=== PATIENT | female | born 1970 | race Caucasian/White ===

== ENCOUNTER 2019-07-21 08:36 | Outpatient (CLI) | payer OTHER ==
[2019-07-21] MEDS ORDERED: ISOVUE-370 76%-LOCM 1 ML ONE (10:25)
--- NOTE | 2019-07-21 11:27 | CT ---
CT OF THE THORAX WITH IV CONTRAST: INDICATION: History of wheezing, elevated white count, and mid aspect chest pain. COMPARISON: Chest radiograph from [facility] dated 06/22/2019. FINDINGS: There is subsegmental volume loss within the lingula and right middle lobe. No confluent airspace op acity or pleural effusion is evident. There are nonspecific shotty-appearing lymph nodes within the mediastinum. The largest is seen within the prevascular window measuring 8.7 mm. There is a 1.1 cm subcarinal lymph node. Visualized upper abdomen demonstrates cholecystectomy change. Normal adrenal glands. Small splenules within the left upper quadrant. There is scattered degenerative and osteoa rthritic change. IMPRESSION: 1. No definite acute cardiopulmonary abnormality. 2. Mildly prominent lymph nodes within the mediastinum, none of which are pathologically enlarged ba sed on size criteria. 3. Subsegmental volume loss within the right middle lobe and lingula are nonspecific. POS: OFF
== END 2019-07-21 08:37 | disposition home or self-care (01) ==
LOC: BICCT 08:36
PROVIDERS: ATTEND Nurse Practitioner Family
DX: D72.828 Other elevated white blood cell count (principal); R06.2 Wheezing; F17.200 Nicotine dependence, unspecified, uncomplicated
CPT/HCPCS: 71260

== ENCOUNTER 2019-10-10 09:49 | Emergency (ER) | payer OTHER ==
[2019-10-10 10:19] LABS: Bilirubin Negative (Negative); Blood, Urine Negative (Negative); Clarity Clear (Clear); Glucose, Urine (Dipstick) Normal (Negative); Leukocyte Negative Leu/uL (Negative); Nitrite Negative (Negative); Protein, Urine (Dipstick) Negative (Neg-Trace); Urobilinogen Normal mg/dL (Less than 2)
[2019-10-10 10:48] LABS: #Basophils 0.1 thou/uL (0.0-0.2); #Eosinphils 0.2 thou/uL (0.0-0.7); #Monocytes 0.4 thou/uL (0.11-0.59); #Neutrophils 3.8 thou/uL (1.40-6.50); %Basophils 0.9 % (0.0-1.0); %Eosinophils 2.4 % (0.0-10.0); %Lymphocytes 40.3 % (21.0-51.0); %Monocytes 5.8 % (0.0-10.0); %Neutrophils 50.6 % (42.0-75.0); Hemoglobin 14.4 g/dL (12.0-16.0); Mean Corpuscular HGB CONC 33.4 g/dL (32.0-36.0); Mean Corpuscular Hemoglobin 28.9 pg (27.0-31.0); Mean Corpuscular Volume 86.5 fL (78.0-98.0); Mean Platelet Volume 7.5 fL (7.4-10.4); Platelet Count 354 thou/uL (130-400); RBC Distribution Width 11.6 % (11.5-14.5); Red Blood Cell (RBC) Count 4.99 mill/uL (4.20-5.40); White Blood Cell (WBC) Count 7.5 thou/uL (4.8-10.8)
[2019-10-10 11:07] LABS: ALT (SGPT) 27 U/L (8-55); AST (SGOT) 25 U/L (5-34); Albumin 3.9 g/dL (3.5-5.0); Alkaline Phosphatase 69 U/L (40-110); Anion Gap 10 mmol/L (10-20); BUN (Urea Nitrogen) 10 mg/dL (7.0-18.7); Bilirubin, Total 0.3 mg/dL (0.2-1.2); Calc. Creatinine Clearance 0 mL/min (70-130); Calcium 9.3 mg/dL (7.8-10.44); Carbon Dioxide 24 mmol/L (22-29); Chloride 106 mmol/L (98-107); Estimated GFR-MDRD 78; Globulin 3.2 g/dL (2.4-3.5); Glucose 94 mg/dL (70-105); Lipase 29 U/L (8-78); Protein, Total 7.1 g/dL (6.0-8.3); Sodium 136 mmol/L (136-145)
[2019-10-10 11:15] LABS: BHCG - Serum Negative (NEGATIVE); Pregs Control Background? CLEAR/WHITE (CLR/WHITE); Pregs Control Bar Appear? YES (CONTROL BAR)
[2019-10-10] MEDS ORDERED: Ondansetron PF 4 MG/2 ML Vial ONE (11:16)
[2019-10-10] MEDS ORDERED: Morphine 4 MG/ML VIAL ONE ×2 (11:16→11:46)
[2019-10-10] MEDS ORDERED: Meropenem 2 GM in Admixture Fee 1 EACH IVPB SCH (11:30)
[2019-10-10] MEDS ORDERED: Meropenem 2 GM in Sodium Chloride 0.9% 100 ML IVPB SCH (11:45)
--- NOTE | 2019-10-10 12:39 | CT ---
ABDOMEN AND PELVIC CT SCAN WITH CONTRAST: HISTORY: Pain. COMPARISON: 04/16/2010. FINDINGS: Scattered atelectasis and/or scar is seen at the lung bases. Liver: Mixed attenuation, with subtle regions of decreased density is suggestive of hepatic steatosis . Gallbladder: Surgically absent. Pancreas: Unremarkable. Spleen: Unremarkable. Adrenal glands: No mass evident. Kidneys: No renal calculus or acute obstruction. Small hypodensity, lower pole right kidney, too s mall to definitively characterize. Bowel: Colonic diverticulosis. No evidence of bowel obstruction. No evidence of acute appendicitis wi thin limitations of technique. Urinary Bladder: The urinary bladder is unremarkable. Adenopathy: No adenopathy within the abdomen or pelvis. Free Air: No free air. Ascites: No ascites. Osseous structures: No acute osseous abnormalities. IMPRESSION: 1. Colonic diverticulosis. 2. Hepatic steatosis. 3. Small hypodensity right kidney, too small to further characterize. Transcribed Date/Time: 10/10/2019 12:49 PM
[2019-10-10] MEDS ORDERED: Pantoprazole 40 MG VIAL ONE (12:48)
[2019-10-10] MEDS ORDERED: Iopamidol 370 76% 100 ML VIAL ONE (12:54)
--- NOTE | 2019-10-10 14:06 | ULT ---
TRANSABDOMINAL TRANSVAGINAL PELVIC ULTRASOUND DATE:: 10/10/2019 1:01 PM CLINICAL HISTORY: History of hysterectomy and right lower quadrant pain. COMPARISON: CT the abdomen and pelvis dated October 10, 2019 TECHNIQUE: Grayscale and color Doppler images were obtained of the pelvis see a transabdominal transv aginal approach Uterus: Surgically absent Ovaries: Not visualized Cul-de-sac: No free fluid IMPRESSION: No acute sonographic abnormality demonstrated.
== END 2019-10-10 14:40 | disposition home or self-care (01) ==
LOC: ERS 09:49
DX: K57.30 Diverticulosis of large intestine without perforation or abscess without bleeding (principal); E78.5 Hyperlipidemia, unspecified; F17.210 Nicotine dependence, cigarettes, uncomplicated; Z79.899 Other long term (current) drug therapy
CPT/HCPCS: 36415; 74177; 76856; 80053; 81003; 83690; 84703; 85025; 96361; 96365; 96375; C9113; J2185; J2270; J2405; J3490; Q9967

== ENCOUNTER 2019-10-11 10:58 | Emergency (ER) | payer OTHER ==
[2019-10-11 11:42] LABS: #Basophils 0.1 thou/uL (0.0-0.2); #Eosinphils 0.1 thou/uL (0.0-0.7); #Monocytes 0.6 thou/uL (0.11-0.59); #Neutrophils 5.1 thou/uL (1.40-6.50); %Basophils 1.2 % (0.0-1.0); %Eosinophils 1.6 % (0.0-10.0); %Lymphocytes 25.7 % (21.0-51.0); %Monocytes 7.1 % (0.0-10.0); %Neutrophils 64.5 % (42.0-75.0); Hemoglobin 13.2 g/dL (12.0-16.0); Mean Corpuscular HGB CONC 33.3 g/dL (32.0-36.0); Mean Corpuscular Hemoglobin 29.2 pg (27.0-31.0); Mean Corpuscular Volume 87.8 fL (78.0-98.0); Mean Platelet Volume 7.5 fL (7.4-10.4); Platelet Count 323 thou/uL (130-400); RBC Distribution Width 11.6 % (11.5-14.5); Red Blood Cell (RBC) Count 4.53 mill/uL (4.20-5.40); White Blood Cell (WBC) Count 7.9 thou/uL (4.8-10.8)
[2019-10-11 11:58] LABS: Anion Gap 9 mmol/L (10-20); BUN (Urea Nitrogen) 13 mg/dL (7.0-18.7); Calc. Creatinine Clearance 0 mL/min (70-130); Calcium 8.6 mg/dL (7.8-10.44); Carbon Dioxide 26 mmol/L (22-29); Chloride 108 mmol/L (98-107); Estimated GFR-MDRD 75; Glucose 107 mg/dL (70-105); Potassium 3.6 mmol/L (3.5-5.1); Sodium 139 mmol/L (136-145)
== END 2019-10-11 11:50 | disposition home or self-care (01) ==
LOC: ERS 10:58
DX: R10.31 Right lower quadrant pain (principal); E78.5 Hyperlipidemia, unspecified; Z79.899 Other long term (current) drug therapy
CPT/HCPCS: 36415; 80048; 85025; 99283

== ENCOUNTER 2020-01-02 14:34 | Outpatient (CLI) | payer OTHER ==
--- NOTE | 2020-01-02 15:30 | RAD ---
LEFT HIP 2 VIEWS: HISTORY: Patient fell and has persistent hip pain. Fall was a few weeks ago. FINDINGS: Joint space is fairly well preserved. I do not see any signs of any fracture. IMPRESSION: No evidence of fracture. No evidence of any arthritic change. POS: [facility]
--- NOTE | 2020-01-02 15:47 | RAD ---
LEFT FEMUR 2 VIEWS: HISTORY: Injury from a fall several weeks ago, then re-fell several days ago with left hip pain. FINDINGS: Mild osteoarthrosis changes of the left SI joint and left hip joint. No acute fracture or dislocatio n. IMPRESSION: Unremarkable left femur. No fracture or dislocation. POS: [facility]
== END 2020-01-02 14:35 | disposition home or self-care (01) ==
LOC: SCSRAD 14:34
PROVIDERS: ATTEND Nurse Practitioner Family
DX: M25.552 Pain in left hip (principal); M25.562 Pain in left knee; G90.522 Complex regional pain syndrome I of left lower limb

== ENCOUNTER 2020-04-19 14:18 | Emergency (ER) | payer OTHER ==
[2020-04-19 14:47] LABS: #Basophils 0.2 thou/uL (0.0-0.2); #Eosinphils 0.2 thou/uL (0.0-0.7); #Lymphocytes 3.8 thou/uL (1.20-3.40); #Monocytes 0.8 thou/uL (0.11-0.59); #Neutrophils 8.7 thou/uL (1.40-6.50); %Basophils 1.4 % (0.0-1.0); %Eosinophils 1.2 % (0.0-10.0); %Lymphocytes 28.1 % (21.0-51.0); %Monocytes 5.9 % (0.0-10.0); %Neutrophils 63.4 % (42.0-75.0); Hemoglobin 14.8 g/dL (12.0-16.0); Mean Corpuscular HGB CONC 32.9 g/dL (32.0-36.0); Mean Corpuscular Hemoglobin 29.2 pg (27.0-31.0); Mean Corpuscular Volume 88.8 fL (78.0-98.0); Mean Platelet Volume 7.5 fL (7.4-10.4); Platelet Count 383 thou/uL (130-400); Red Blood Cell (RBC) Count 5.08 mill/uL (4.20-5.40); White Blood Cell (WBC) Count 13.7 thou/uL (4.8-10.8)
[2020-04-19 14:58] LABS: Bilirubin Small (Negative); Blood, Urine Negative (Negative); Glucose, Urine (Dipstick) Negative (Negative); Leukocyte Negative (Negative); Nitrite Negative (Negative); Protein, Urine (Dipstick) Negative (Neg-Trace); Urobilinogen 0.2 mg/dL (Less than 2)
[2020-04-19 15:00] LABS: Clarity Clear (Clear)
[2020-04-19 15:32] LABS: ALT (SGPT) 20 U/L (8-55); AST (SGOT) 28 U/L (5-34); Alkaline Phosphatase 69 U/L (40-110); Anion Gap 13 mmol/L (10-20); BUN (Urea Nitrogen) 10 mg/dL (7.0-18.7); Bilirubin, Total 0.5 mg/dL (0.2-1.2); Calc. Creatinine Clearance 0 mL/min (70-130); Calcium 8.8 mg/dL (7.8-10.44); Carbon Dioxide 21 mmol/L (22-29); Chloride 104 mmol/L (98-107); Estimated GFR-MDRD 72; Globulin 3.8 g/dL (2.4-3.5); Glucose 123 mg/dL (70-105); Lipase 26 U/L (8-78); Potassium 4.1 mmol/L (3.5-5.1); Protein, Total 7.8 g/dL (6.0-8.3); Sodium 134 mmol/L (136-145)
[2020-04-19 15:38] LABS: BHCG - Serum Negative (NEGATIVE); Pregs Control Background? CLEAR/WHITE (CLR/WHITE); Pregs Control Bar Appear? YES (CONTROL BAR)
[2020-04-19] MEDS ORDERED: Ondansetron PF 4 MG/2 ML Vial ONE (15:44)
--- NOTE | 2020-04-19 16:31 | CT ---
CT abdomen and pelvis with IV contrast HISTORY: Right lower quadrant pain. COMPARISON: 10/10/2019. The lung bases are clear. Gallbladder is surgically absent. Circumaortic left renal vein noted. Tiny cortical calcification at the superior pole left kidney now better visualized. Tiny right renal cyst is stable. No urinary tract calcification or obstruction apparent. A 1.4 cm rounded right retroperitoneal cyst immediately anterior to the right external iliac artery a t the level of the mid sacrum may represent a congenital lymphatic process. No solid masses. Diverticula arise from the colon without adjacent inflammation. Fatty wall prominence of the right co ángel is more conspicuous on the current exam. Appendix is not inflamed. No evidence of bowel obstruction. IMPRESSION : No acute abnormalities are demonstrated to explain right lower quadrant pain. Fatty infiltration of t he right colon is nonspecific and sometimes seen with inflammatory bowel disease. Diverticulosis. No evidence of diverticulitis.
[2020-04-19] MEDS ORDERED: Ciprofloxacin 500 MG TAB ONE (17:41)
[2020-04-19] MEDS ORDERED: Ketorolac Tromethamine 30 MG/ML VIAL ONE (17:43)
== END 2020-04-19 17:55 | disposition home or self-care (01) ==
LOC: ERS 14:18
DX: K57.32 Diverticulitis of large intestine without perforation or abscess without bleeding (principal); E78.5 Hyperlipidemia, unspecified; E78.00 Pure hypercholesterolemia, unspecified; F41.9 Anxiety disorder, unspecified; F17.210 Nicotine dependence, cigarettes, uncomplicated; Z79.899 Other long term (current) drug therapy
CPT/HCPCS: 36415; 74177; 80053; 81003; 83690; 84703; 85025; 96361; 96374; 96375; J1885; J2405

== ENCOUNTER 2020-07-17 13:05 | Outpatient (CLI) | payer OTHER ==
[2020-07-17] MEDS ORDERED: Iopamidol 370 76% 100 ML VIAL ONE (13:35)
--- NOTE | 2020-07-17 14:17 | CT ---
EXAM: CT of the chest with contrast HISTORY: Mediastinal adenopathy COMPARISON: 07/21/2019 TECHNIQUE: Multiple contiguous axial images were obtained in a CT the chest with contrast. Coronal an d sagittal reformats were performed. FINDINGS: HEART: Normal in size without focal cardiac abnormality MEDIASTINUM: No hilar or mediastinal lymphadenopathy. The lymph nodes have decreased in size with the largest lymph node measuring 7 mm in short axis. LUNGS: No focal infiltrates, nodules, or masses. PLEURAL SPACE: No pneumothorax or pleural effusion. CHEST WALL SOFT TISSUES: Unremarkable OSSEOUS STRUCTURES: Degenerative changes in the spine. VISUALIZED SUBDIAPHRAGMATIC STRUCTURES: Status post cholecystectomy. Diffuse fatty infiltration of th e liver. IMPRESSION: 1. No evidence of acute intrathoracic abnormality. 2. Fatty liver
== END 2020-07-17 13:06 | disposition home or self-care (01) ==
LOC: BICCT 13:05
PROVIDERS: ATTEND Internal Medicine Pulmonary Disease
DX: R59.0 Localized enlarged lymph nodes (principal); K76.0 Fatty (change of) liver, not elsewhere classified
CPT/HCPCS: 71260; Q9967

== ENCOUNTER 2020-09-10 17:30 | Outpatient (CLI) | payer OTHER | END 2020-09-10 17:31 | disposition home or self-care (01) | LOC: SLEEPLAB 17:30 | PROVIDERS: ATTEND Internal Medicine Pulmonary Disease | DX: G47.33 Obstructive sleep apnea (adult) (pediatric) (principal); R53.83 Other fatigue; R06.83 Snoring; G47.00 Insomnia, unspecified; E66.9 Obesity, unspecified; Z68.37 Body mass index [BMI] 37.0-37.9, adult | CPT/HCPCS: 95806 ==

== ENCOUNTER 2020-10-29 13:36 | Outpatient (CLI) | payer OTHER ==
--- NOTE | 2020-10-29 13:56 | RAD ---
XR Knee Lt 4 View STANDARD History: Injury. Fall Comparison: None. Findings: No acute fracture or malalignment. No significant joint effusion. Impression: No acute osseous abnormality.
== END 2020-10-29 13:37 | disposition home or self-care (01) ==
LOC: SCSRAD 13:36
PROVIDERS: ATTEND Nurse Practitioner Family
DX: S89.92XA Unspecified injury of left lower leg, initial encounter (principal)

== ENCOUNTER 2021-07-29 10:05 | Outpatient (CLI) | payer OTHER ==
[~2021-07-29 10:05] MED LIST: Iopamidol 370 76% 100 ML VIAL ONE
== END 2021-07-29 10:06 | disposition home or self-care (01) ==
LOC: BICCT 10:05
PROVIDERS: ATTEND Internal Medicine Pulmonary Disease
DX: R91.8 Other nonspecific abnormal finding of lung field (principal)
CPT/HCPCS: 71260; Q9967

== ENCOUNTER 2022-09-18 15:02 | Outpatient (CLI) | payer BC | END 2022-09-18 15:03 | disposition home or self-care (01) | LOC: SCSMRI 15:02 | PROVIDERS: ATTEND Nurse Practitioner Family | DX: M51.16 Intervertebral disc disorders with radiculopathy, lumbar region (principal); M51.35 Other intervertebral disc degeneration, thoracolumbar region | CPT/HCPCS: 72148 ==

== ENCOUNTER 2023-03-11 09:41 | Outpatient (CLI) | payer BC | END 2023-03-11 09:42 | disposition home or self-care (01) | LOC: TBSIIMAG 09:41 | PROVIDERS: ATTEND Surgery | DX: M51.26 Other intervertebral disc displacement, lumbar region (principal); M54.6 Pain in thoracic spine; M47.814 Spondylosis without myelopathy or radiculopathy, thoracic region | CPT/HCPCS: 72146; 72148 ==

== ENCOUNTER 2023-09-05 01:03 | Emergency (ER) | payer BC ==
[2023-09-05] MEDS ORDERED: Acetaminophen 500 MG TAB ONE ×2 (01:57→08:58)
[2023-09-05] MEDS ORDERED: Ketorolac Tromethamine 30 MG/ML VIAL ONE (01:57)
[2023-09-05] MEDS ORDERED: Morphine 4 MG/ML VIAL ONE ×3 (01:57→07:59)
[2023-09-05 02:31] LABS: Bacteria/HPF None Seen HPF (None Seen); Bilirubin Negative (Negative); Blood, Urine Negative (Negative); CAUTI Indications for Culture < 2yrs of age; Clarity Clear (Clear); Glucose, Urine (Dipstick) Normal (Negative); Ketone, Urine Negative (Negative); Leukocyte Negative Leu/uL (Negative); Nitrite Negative (Negative); Protein, Urine (Dipstick) 10 mg/dL (Neg-Trace); RBC/HPF 0-3 HPF (0-3); Squamous Epithelial 0-3 HPF (0-3); Urobilinogen 3 mg/dL (Less than 2); WBC/HPF 0-3 HPF (0-3)
[2023-09-05 02:32] LABS: #Monocytes 0.3 thou/uL (0.11-0.59); %Basophils 0.9 % (0.0-1.0); %Lymphocytes 27.7 % (21.0-51.0); %Monocytes 6.1 % (0.0-10.0); %Neutrophils 65.1 % (42.0-75.0); Hematocrit 38.6 % (36.0-47.0); Hemoglobin 12.9 g/dL (12.0-16.0); Mean Corpuscular HGB CONC 33.4 g/dL (32.0-36.0); Mean Corpuscular Volume 86.7 fl (78.0-98.0); Mean Platelet Volume 9.8 fL (7.4-10.4); Platelet Count 215 10x3/uL (130-400); RBC Distribution Width 12.6 % (11.5-14.5); Red Blood Cell (RBC) Count 4.45 mill/uL (4.20-5.40); White Blood Cell (WBC) Count 4.6 10x3/uL (4.8-10.8)
[2023-09-05 02:32] LABS: Urine Culture Reflex Yes Yes
[2023-09-05 02:56] LABS: SARS-CoV-2 NAA Rapid Test Not Detected (NotDetected)
[2023-09-05 03:00] LABS: ALT (SGPT) 24 U/L (8-55); AST (SGOT) 32 U/L (5-34); Albumin 3.5 g/dL (3.5-5.0); Alkaline Phosphatase 127 U/L (40-110); Anion Gap 10 mmol/L (10-20); BUN (Urea Nitrogen) 8 mg/dL (9.8-20.1); Bilirubin, Total 0.3 mg/dL (0.2-1.2); Calcium 9.1 mg/dL (7.8-10.44); Carbon Dioxide 24 mmol/L (22-29); Chloride 103 mmol/L (98-107); Globulin 2.6 g/dL (2.4-3.5); Glucose 103 mg/dL (70-105); Potassium 3.5 mmol/L (3.5-5.1); Protein, Total 6.1 g/dL (6.0-8.3); Sodium 133 mmol/L (136-145)
[2023-09-05 03:07] LABS: Calc. Creatinine Clearance 0 mL/min (70-130); Estimated GFR 101
[2023-09-05] MEDS ORDERED: Ondansetron ODT 4 MG TAB ONE (08:06)
[2023-09-05] MEDS ORDERED: Magnevist 469MG/ML 20 ML VIAL ONE (09:09)
== END 2023-09-05 09:11 | disposition home or self-care (01) ==
LOC: ERS 01:03
DX: M54.50 Low back pain, unspecified (principal); R50.9 Fever, unspecified; E78.00 Pure hypercholesterolemia, unspecified; F17.210 Nicotine dependence, cigarettes, uncomplicated; Z79.899 Other long term (current) drug therapy
CPT/HCPCS: 36415; 71045; 72158; 80053; 81001; 83605; 85025; 86140; 87040; 87086; 96374; 96375; 96376; A9579; J1885; J2270; Q0162

== ENCOUNTER 2023-09-17 23:53 | Emergency (ER) | payer BC ==
[2023-09-18 00:41] LABS: Hemoglobin 12.2 g/dL (12.0-16.0); Mean Corpuscular Hemoglobin 28.2 pg (27.0-31.0); Mean Corpuscular Volume 85.6 fl (78.0-98.0); Mean Platelet Volume 9.5 fL (7.4-10.4); Platelet Count 378 10x3/uL (130-400); RBC Distribution Width 14.4 % (11.5-14.5); Red Blood Cell (RBC) Count 4.32 mill/uL (4.20-5.40); White Blood Cell (WBC) Count 9.2 10x3/uL (4.8-10.8)
[2023-09-18 00:45] LABS: Delete Auto Diff?? YES; Manual Diff?? YES
[2023-09-18 01:10] LABS: ALT (SGPT) 18 U/L (8-55); AST (SGOT) 35 U/L (5-34); Albumin 3.1 g/dL (3.5-5.0); Alkaline Phosphatase 177 U/L (40-110); Anion Gap 14 mmol/L (10-20); BUN (Urea Nitrogen) 11 mg/dL (9.8-20.1); Bilirubin, Total 0.7 mg/dL (0.2-1.2); Calc. Creatinine Clearance 0 mL/min (70-130); Calcium 8.6 mg/dL (7.8-10.44); Carbon Dioxide 22 mmol/L (22-29); Chloride 104 mmol/L (98-107); Estimated GFR 107; Globulin 4.2 g/dL (2.4-3.5); Glucose 106 mg/dL (70-105); Lipase 109 U/L (8-78); Potassium 3.8 mmol/L (3.5-5.1); Protein, Total 7.3 g/dL (6.0-8.3); Sodium 136 mmol/L (136-145)
[2023-09-18 02:00] LABS: Anisocytosis SLIGHT = 6-15 cells HPF (0-5); Band 6 % (5-11); CellaVision Operator ID LAB.JMM; Lymphocytes 29 % (21-51); Macrocytosis SLIGHT = 6-15 cells HPF (0-5); Monocytes 9 % (0-10); Neutrophil 48 % (42-75); Platelet Adequacy Comment Platelets Normal; Polychromasia SLIGHT = 2-3 cells HPF (0-2); Reactive Lymphocytes 7 % (0-10); Total Cell Count 100
[2023-09-18] MEDS ORDERED: Morphine 4 MG/ML VIAL ONE ×2 (02:09→05:10)
[2023-09-18] MEDS ORDERED: Ondansetron PF 4 MG/2 ML Vial ONE (02:09)
[2023-09-18] MEDS ORDERED: Metoclopramide HCl 10 MG/2 ML VIAL ONE (05:17)
[2023-09-18] MEDS ORDERED: Iopamidol 370 76% 100 ML VIAL ONE (15:47)
== END 2023-09-18 07:30 | disposition home or self-care (01) ==
LOC: ERS 23:53
DX: R11.2 Nausea with vomiting, unspecified (principal); E78.00 Pure hypercholesterolemia, unspecified; F17.210 Nicotine dependence, cigarettes, uncomplicated; Z79.899 Other long term (current) drug therapy
CPT/HCPCS: 36415; 72132; 74177; 80053; 83605; 83690; 85025; 96361; 96365; 96375; 96376; J2270; J2405; J2765